=== PATIENT | male | born 1965 | race Caucasian/White ===

== ENCOUNTER → 2020-07-10 | Outpatient (CLI) | payer OTHER ==
[~2020-07-10] MED LIST: DOXY100T2 PO
[2020-07-10 10:52] LABS: HEMATOCRIT 43 % (40-54); MEAN CORPUSCULAR HEMOGLOBIN 30 PG (25-34); MEAN CORPUSCULAR HGB CONC 35 G/DL (32-36); MEAN CORPUSCULAR VOLUME 86 FL (80-99); PLATELET COUNT 58 10^3/uL (130-400); WHITE BLOOD COUNT 1.7 10^3/uL (4.3-11.0)
[2020-07-10 10:53] LABS: BASOPHILS % (AUTO) 1 % (0-10); EOSINOPHILS % (AUTO) 0 % (0-10); LYMPHOCYTES # (AUTO) 0.8 X 10^3 (1.0-4.0); LYMPHOCYTES % (AUTO) 46 % (12-44); MEAN PLATELET VOLUME 10.4 FL (7.4-10.4); MONOCYTES # (AUTO) 0.1 X 10^3 (0.0-1.0); MONOCYTES % (AUTO) 8 % (0-12); NEUTROPHILS # (AUTO) 0.8 X 10^3 (1.8-7.8); NEUTROPHILS % (AUTO) 45 % (42-75)
[2020-07-10 11:13] LABS: BUN/CREATININE RATIO 14; CARBON DIOXIDE 20 MMOL/L (21-32); CHLORIDE 103 MMOL/L (98-107); CREATININE SERUM 0.86 MG/DL (0.60-1.30); GFR ESTIMATED > 60; POTASSIUM 4.2 MMOL/L (3.6-5.0); SODIUM 134 MMOL/L (135-145)
[2020-07-10 11:14] LABS: ALANINE AMINOTRANSFERASE 85 U/L (0-55); ALBUMIN 3.9 GM/DL (3.2-4.5); ALKALINE PHOSPHATASE 49 U/L (40-136); BILIRUBIN,TOTAL 0.3 MG/DL (0.1-1.0); CALCIUM 8.4 MG/DL (8.5-10.1); GLUCOSE 130 MG/DL (70-105); TOTAL PROTEIN 6.4 GM/DL (6.4-8.2)
== END ==
LOC: LAB FS 10:30
PROVIDERS: ATTEND Family Medicine
DX: R52 Pain, unspecified (principal)
CPT/HCPCS: 36415; 80053; 85025

== ENCOUNTER 2020-09-11 05:32 | Outpatient (RCR) | payer OTHER ==
[~2020-09-11] VITALS: Ht 182.9 cm; Wt 108.6 kg
[~2020-09-11 05:32] MED LIST changes: +LISI10TA2 PO; +LOVA10TA PO; +METF-399 PO
== END 2020-09-12 11:55 | disposition home or self-care (01) ==
LOC: PREOP 05:32
PROVIDERS: ATTEND Surgery
DX: Z01.812 Encounter for preprocedural laboratory examination (principal); Z20.828 Contact with and (suspected) exposure to other viral communicable diseases
CPT/HCPCS: 87635

== ENCOUNTER 2020-09-15 07:44 | Day surgery (SDC) | payer OTHER ==
[~2020-09-15] VITALS: Ht 183 cm; Wt 108.6 kg
[2020-09-15] MEDS ORDERED: LACTATED RINGERS 1,000 ML IV STA (07:53)
[2020-09-15] MEDS ORDERED: LACTATED RINGERS 1,000 ML IV ONE (07:54)
[2020-09-15] MEDS ORDERED: MIDAZOLAM 2 MG/2 ML (VERSED) VIAL ONE (07:56)
[2020-09-15] MEDS ORDERED: PROPOFOL INJECTION 50 ML IV ONE (07:56)
[2020-09-15 08:00] VITALS: BP 144/114
--- NOTE | 2020-09-15 08:20 | Progress Note-Pre Operative ---
Pre-Operative Progress Note H&P Reviewed The H&P was reviewed, patient examined and no changes noted. Time Seen by Provider: 08:15 Date H&P Reviewed: Sep 15, 2020 Time H&P Reviewed: 08:14 Pre-Operative Diagnosis: Screening colon ERICK FRANCO DO Sep 15, 2020 08:20
[2020-09-15 09:00] VITALS: BP 130/85
[2020-09-15 09:05] VITALS: BP 138/88
--- NOTE | 2020-09-15 09:05 | Progress Note-Post Operative ---
Post-Operative Progess Note Surgeon (s)/Set O Type Operator (s) Surgeon ERICK FRANCO DO Set O Type Operator: Victor Manuel Myers MSIII Pre-Operative Diagnosis Screening colon Post-Operative Diagnosis Diverticula int hemorrhoids Procedure & Operative Findings Date of Procedure 09/15/20 Procedure Performed/Findings colon Anesthesia Type IV sedation by VETERINARY PRACTICE MANAGER Estimated Blood Loss Estimated blood loss (mL): none Specimens/Packing Specimens Removed none ERICK FRANCO DO Sep 15, 2020 09:05
--- NOTE | 2020-09-15 09:06 | Endoscopy Discharge Instruct ---
Endo Procedure/Findings Findings 1.: Diverticulosis 2.: Internal Hemorrhoids Discharge Instructions - Activity: You might feel a little sleepy until tomorrow. This is due to the medicine you received to relax you. Until tomorrow, you should: NOT drive a car, operate machinery or power tools. NOT drink any alcoholic beverages. NOT make any important decisions or sign importortant papers. Do not return to work until tomorrow, unless otherwise instructed. Resume previous activities tomorrow. Diet: Start by taking liquids. If you tolerate liquids, advance to solid food. 1.: Colonscopy in 10 years Notify Physician - If you experience excessive bleeding, unusual abdominal pain, fever, or chest pain, contact your doctor immediately. ERICK FRANCO DO Sep 15, 2020 09:06
[2020-09-15 09:10] VITALS: BP_SYST 136; BP_DIAS 76; BP_DIAS 87
[2020-09-15 09:40] VITALS: BP 144/101
[2020-09-15 09:50] VITALS: BP 144/101
--- NOTE | 2020-09-15 10:22 | Anesthesia-General Post-Op ---
MAC Patient Condition Mental Status/LOC: Same as Preop Cardiovascular: Satisfactory Nausea/Vomiting: Absent Respiratory: Satisfactory Pain: Controlled Complications: Absent Post Op Complications Complications None Follow Up Care/Instructions Patient Instructions None needed. Anesthesiology Discharge Order Discharge Order Patient is doing well, no complaints, stable vital signs, no apparent adverse anesthesia problems. No complications reported per nursing. JONATHAN JONAS CRNA Sep 15, 2020 10:22
--- NOTE | 2020-09-15 14:39 | OPERATIVE REPORT ---
DATE OF SERVICE: PREOPERATIVE DIAGNOSIS: Screening colonoscopy. POSTOPERATIVE DIAGNOSES: Diverticula, internal hemorrhoids. PROCEDURE: Colonoscopy. SURGEON: Pancho Hernandez DO MACHINE REBUILDER: Victor Manuel Myers MS3. ANESTHESIA: IV sedation by the PAY STATION ATTENDANT. SPECIMENS: None. BLOOD LOSS: None. FLUIDS: Per anesthesia. POSTOPERATIVE CONDITION: Stable. INDICATION FOR PROCEDURE: The patient is a 55-year-old male, who has never had a colonoscopy, needs one for screening. FINDINGS: The patient had some diverticula and internal hemorrhoids with no other obvious pathology. PROCEDURE NOTE: After informed consent was obtained, the patient was brought to the endoscopy suite, placed in bed in left lateral decubitus position. He was administered IV sedation by the PAY STATION ATTENDANT who then monitored his vitals the entire time, heart rate, blood pressure and pulse ox and the scope was inserted, pushed all the way to 150 cm, able to get to the cecum, took a picture of appendiceal orifice, noted the ileocecal valve, on the way in and taken pictures of diverticula. Then slowly withdrew the scope insufflating to look circumferentially at the dove, looking the cecum, up the ascending colon to the hepatic flexure, then down the transverse colon, splenic flexure, into the descending colon down into the sigmoid and finally into the rectum, retroflexed the scope in the rectal vault, saw some internal hemorrhoids, took a picture of this and then removed the scope. The patient tolerated the procedure. He was recovered in endoscopy suite. Job ID: [id number] DocumentID: [id number] Dictated Date: 09/15/2020 09:49:55 Mess Attendant Crew Date: 09/15/2020 14:38:57 Dictated By: PANCHO HERNANDEZ DO
== END 2020-09-15 09:50 | disposition home or self-care (01) ==
LOC: ENDO 07:44
PROVIDERS: ATTEND Surgery
DX: Z12.11 Encounter for screening for malignant neoplasm of colon (principal); K64.8 Other hemorrhoids; K57.30 Diverticulosis of large intestine without perforation or abscess without bleeding; I10 Essential (primary) hypertension; G47.33 Obstructive sleep apnea (adult) (pediatric); E11.9 Type 2 diabetes mellitus without complications; E78.00 Pure hypercholesterolemia, unspecified; Z79.84 Long term (current) use of oral hypoglycemic drugs; Z79.899 Other long term (current) drug therapy; Z88.8 Allergy status to other drugs, medicaments and biological substances; Z80.0 Family history of malignant neoplasm of digestive organs

== ENCOUNTER → 2021-07-23 | Outpatient (CLI) | payer OTHER ==
[~2021-07-23] VITALS: Ht 182.9 cm; Wt 109.9 kg
[~2021-07-23] MED LIST changes: +ACETAMINOPHEN 500 MG TAB (TYLENOL) PO PRN; +CASIRIVIMAB/IMDEVIMAB 1,200 MG in NS (IVPB) 250 ML IV ONE; +EPINEPHrine INJECTION 1 MG/ML AMP IM PRN; -LISI10TA2 PO; +LISI10TA25 PO; +ONDANSETRON 4 MG/2 ML (SDV) Z0FRAN IV PRN; +diphenhydrAMINE 50 MG/ML INJ (BENADRYL) IV PRN
[2021-07-23 09:24] VITALS: BP 139/85
[2021-07-23 11:12] VITALS: BP 120/82
== END ==
LOC: INFUSION 09:31
PROVIDERS: ATTEND Family Medicine
DX: Z23 Encounter for immunization (principal); U07.1 COVID-19